=== PATIENT | female | born 1985 | race Caucasian/White ===

== ENCOUNTER → 2020-11-12 | Day surgery (SDC) | payer OTHER ==
[~2020-11-12] VITALS: Ht 165.1 cm; Wt 60.0 kg
[~2020-11-12] MED LIST: CLON0.5T PO; DEXT20TA2 PO; DULO20CA PO; IV RINGERS,LACTATED 1000ML 1,000 ML IV SCH; LUBI8CAP4 PO; METH2.5T PO
[2020-11-12 08:09] VITALS: BP 113/72
[2020-11-12 09:10] VITALS: BP 116/83
== END | disposition home or self-care (01) ==
LOC: SURG 07:45
PROVIDERS: ATTEND Internal Medicine Gastroenterology
DX: R10.13 Epigastric pain (principal); K21.00 Gastro-esophageal reflux disease with esophagitis, without bleeding; K31.89 Other diseases of stomach and duodenum; R19.8 Other specified symptoms and signs involving the digestive system and abdomen; J45.909 Unspecified asthma, uncomplicated; M19.90 Unspecified osteoarthritis, unspecified site; F41.9 Anxiety disorder, unspecified; F32.9 Major depressive disorder, single episode, unspecified; Z79.899 Other long term (current) drug therapy; Z98.890 Other specified postprocedural states; Z88.8 Allergy status to other drugs, medicaments and biological substances
CPT/HCPCS: 43239; 81025; 88305